=== PATIENT | male | born 1960 | race Caucasian/White ===

== ENCOUNTER 2023-12-08 11:10 | Emergency (ER) | payer OTHER ==
[~2023-12-08] VITALS: Ht 187.9 cm; Wt 99.8 kg
[2023-12-08] MEDS ORDERED: LEVOFLOXACIN750 M2 PO (11:49)
== END 2023-12-08 12:00 | disposition home or self-care (01) ==
LOC: ED 11:10
DX: J32.9 Chronic sinusitis, unspecified (principal); R11.2 Nausea with vomiting, unspecified

== ENCOUNTER 2025-04-21 13:08 | Emergency (ER) | payer OTHER ==
[~2025-04-21] VITALS: Ht 154.9 cm; Wt 102.5 kg
[~2025-04-21 13:08] MED LIST: LEVOFLOXACIN750 M2 PO
[2025-04-21] MEDS ORDERED: Acetaminophen/Oxycodone 5 MG/325 MG TABLET PO ONE (14:00)
[2025-04-21] MEDS ORDERED: IOHEXOL 300 MG/ML 100 ML VIAL IV ONE (14:05)
[2025-04-21 14:15] LABS: BASO # 0.0 10*3/uL (0.0-0.1); BASO % 0.3 % (0.0-1.0); EOS # 0.1 10*3/uL (0.0-0.4); EOS % 0.8 % (1.0-4.0); MEAN CELL VOLUME 85.4 fl (80.0-94.0); MEAN CORPUSCULAR HGB 29.3 pg (27.0-31.0); MEAN PLATELET VOLUME 10.2 fl (9.6-12.3); MONO # 1.1 10*3/uL (0.1-1.0); MONO % 7.7 % (3.0-9.0); NEUT # 12.2 10*3/uL (2.3-7.9); NEUT % 83.7 % (47.0-73.0); NUCLEATED RED BLOOD CELL 0.0 % (0.0-0.0); NUCLEATED RED BLOOD CELL 0.0 10*3/uL (0.0-0.0); PLATELET COUNT AUTOMATED 200 10*3/uL (130-400); RED CELL DISTRI WIDTH 12.5 % (0-14.5)
[2025-04-21 14:47] LABS: BUN 14 mg/dl (9-23)
[2025-04-21] MEDS ORDERED: Dexamethasone Sodium Phospha 10 MG/1 ML VIAL IV ONE (17:45)
== END 2025-04-21 18:22 | disposition short-term general hospital (02) ==
LOC: ED 13:08
PROVIDERS: Nurse Practitioner Family
DX: L08.9 Local infection of the skin and subcutaneous tissue, unspecified (principal); Z87.820 Personal history of traumatic brain injury; Z79.899 Other long term (current) drug therapy